=== PATIENT | female | born 1995 | race Caucasian/White ===

== ENCOUNTER 2020-04-20 01:18 | Emergency (ER) | payer MEDICAID, OTHER ==
[~2020-04-20] VITALS: Ht 162.6 cm; Wt 49.9 kg
[2020-04-20 02:14] VITALS: BP 123/80
[2020-04-20] MEDS ORDERED: IBUPROFEN 600 MG TAB PO ONE (02:15)
[2020-04-20] MEDS ORDERED: IOHEXOL 300 MG/ML 100ML BOTTLE IJ ONE (02:24)
== END 2020-04-21 05:26 | disposition left against medical advice (07) ==
LOC: EDBD 01:18 → ER 01:18
DX: S13.9XXA Sprain of joints and ligaments of unspecified parts of neck, initial encounter (principal); S23.3XXA Sprain of ligaments of thoracic spine, initial encounter; S90.31XA Contusion of right foot, initial encounter; V49.9XXA Car occupant (driver) (passenger) injured in unspecified traffic accident, initial encounter; Y93.89 Activity, other specified; Y92.89 Other specified places as the place of occurrence of the external cause; Y99.8 Other external cause status
CPT/HCPCS: 36415; 80320; 84702